=== PATIENT | male | born 1980 | race Caucasian/White ===

== ENCOUNTER 2020-09-29 23:23 | Inpatient (IN) | payer SELFPAY ==
[~2020-09-29] VITALS: Ht 200.7 cm; Wt 115.7 kg
[2020-09-29 23:36] VITALS: BP_SYST 162
[2020-09-29] MEDS ORDERED: cefTRIAXone 1 GM in D5W 50 ML IV ONE (23:45)
[2020-09-30] MEDS ORDERED: KETOROLAC TROMETHAMINE 30 MG VIAL IVP ONE (00:15)
[2020-09-30] MEDS ORDERED: KETOROLAC TROMETHAMINE 30 MG VIAL ONE (00:16)
[2020-09-30 00:22] LABS: HEMATOCRIT 37.2 % (36-54); HEMOGLOBIN 12.1 g/dL (14.0-18.0); MEAN CORPUSCULAR HEMOGLOBIN 27 pg (27-31); MEAN CORPUSCULAR HGB CONC 32 % (32-36); MEAN CORPUSCULAR VOLUME 82 fL (79.0-98.0); PLATELET COUNT (AUTO) 275 K/uL (130-430); RED BLOOD CELL COUNT(AUTO) 4.54 MIL/uL (4.2-6.2); RED CELL DISTRIBUTION WIDTH 13.9 % (9.0-15.0); WHITE BLOOD COUNT (AUTO) 23.8 K/uL (4.8-10.8)
[2020-09-30] MEDS ORDERED: VANCOMYCIN HCL 1,000 MG in NS 250 ML IV ONE (00:45)
[2020-09-30 00:47] LABS: ALBUMIN 2.9 g/dL (3.4-4.8); CALCIUM 8.7 mg/dL (8.4-11.0); CREATININE 1.12 mg/dL (0.55-1.30); TOTAL BILIRUBIN 0.7 mg/dL (0.0-1.0)
[2020-09-30 00:48] LABS: POTASSIUM 3.4 mmol/L (3.5-5.1)
[2020-09-30] MEDS ORDERED: VANCOMYCIN HCL 1000 MG/VIAL IV ONE (00:48)
[2020-09-30 00:55] LABS: C-REACTIVE PROTEIN QUANT 35.5 mg/dL (0-0.5)
[2020-09-30] MEDS ORDERED: NACL 0.9% 1,000 ML IV ONE ×2 (01:00)
[2020-09-30] MEDS ORDERED: MORPHINE 2 MG/ML INJ. SYRINGE IVP PRN (01:15)
[2020-09-30 01:16] LABS: ERYTHROCYTE SEDIMENTATION RATE 78 MM/HR (0-15)
[2020-09-30] MEDS ORDERED: MORPHINE 2 MG/ML INJ. SYRINGE ONE (01:19)
[2020-09-30 01:28] LABS: BILIRUBIN,URINE NEGATIVE (NEGATIVE); CLARITY/URINE CLEAR (CLEAR); COLOR,URINE YELLOW (YELLOW); GLUCOSE,URINE NEGATIVE (NEGATIVE); KETONES,URINE TRACE (NEGATIVE); LEUKOCYTE ESTERASE ,URINE NEGATIVE (NEGATIVE); NITRITE, URINE NEGATIVE (NEGATIVE); PROTEIN URINE TRACE (NEGATIVE)
[2020-09-30 01:28] LABS: BAND % (MANUAL) 10 % (0-6); BASOPHILS % (MANUAL) 0 % (0-2); EOSINOPHILS % (MANUAL) 0 % (0-7); LYMPHOCYTES % (MANUAL) 6 % (20-46); MONOCYTES % (MANUAL) 2 % (0-11)
[2020-09-30] MEDS ORDERED: MORPHINE 2 MG/ML INJ. SYRINGE IVP ONE (01:30)
[2020-09-30 01:38] LABS: BLOOD, URINE TRACE (NEGATIVE)
[2020-09-30 01:39] LABS: BARBITURATE, URINE NEGATIVE (NEG <=200); BENZODIAZEPINE, URINE NEGATIVE (NEG <=150); CANNABINOID, URINE POSITIVE (NEG <=50); COCAINE, URINE NEGATIVE (NEG <=150); METHAMPHETAMINES SCREEN,URINE POSITIVE (NEG <=500); PHENCYCLIDINE SCREEN,URINE NEGATIVE (NEG <=25); UR TRICYCLIC ANTIDEPRESSANTS NEGATIVE (NEG <=300); URINE AMPHETAMINE POSITIVE (NEG <=500); URINE METHADONE NEGATIVE (NEG <=200); URINE OXYCODONE SCREEN NEGATIVE (NEG <=100); URINE PROPOXYPHENE SCREEN NEGATIVE (NEG <=300)
[2020-09-30 01:40] LABS: OPIATE, URINE POSITIVE (NEG <=100)
[2020-09-30] MEDS ORDERED: PIPERACILLIN/TAZOBACTAM 3.375 GM/VIAL (ZOSYN) IV ONE (02:24)
[2020-09-30 03:08] LABS: BACTERIA,URINE FEW /HPF (None Seen); WBC,URINE 0-3 /HPF (0-3)
[2020-09-30] MEDS: NACL 0.9% 1,000 ML IV SCH ×2 (03:50→08:30)
[2020-09-30 03:51] VITALS: BP_SYST 135
[2020-09-30] MEDS: MORPHINE 2 MG/ML INJ. SYRINGE IVP PRN ×2 (04:57→09:15)
[2020-09-30] MEDS: PIPERACILLIN/TAZO 3.375/DEX-IS 50 ML IV SCH ×2 (05:55→11:50)
[2020-09-30 08:00] VITALS: BP_SYST 149
[2020-09-30] MEDS ORDERED: VANCOMYCIN HCL 1,500 MG in NS 250 ML IV SCH (09:00)
== END 2020-09-30 12:52 | disposition left against medical advice (07) | DRG 872 ==
LOC: SED 23:23 → SMU 09-30 01:08
PROVIDERS: ADMIT Internal Medicine; ATTEND Internal Medicine
DX: A41.9 Sepsis, unspecified organism (principal); L03.113 Cellulitis of right upper limb; Z20.828 Contact with and (suspected) exposure to other viral communicable diseases
CPT/HCPCS: 36415; 73090; 80053; 80307; 81000-TC; 83605; 85007; 85027; 85651-TC; 86140; 87040-TC; 96361; 96374; 96375; J1885; J2270; J2543; J3370; J7050